=== PATIENT | male | born 1980 | race Caucasian/White ===

== ENCOUNTER 2017-12-02 00:35 | Emergency (ER) | payer OTHER ==
--- NOTE | 2017-12-02 01:59 | EDPHY ---
H & P Time Seen by Provider: 12/02/17 01:06 HPI/ROS: Chief complaint: Forehead laceration History of present illness: This is a 37-year-old male who presents, accompanied with his mother for evaluation of a forehead laceration. Patient was walking on some stairs when he slipped and struck his forehead against the side of the stairs cutting it. He has noted bleeding from the wound, this is been controlled with a dressing. He denies other trauma from the fall. Further there was no loss of consciousness. No headache. No pain or trauma to other parts of the body including the neck. No neurologic symptoms such as paresthesias, weakness or paralysis, bowel or bladder dysfunction. His tetanus is up-to-date. Review of systems: A 10 point review of systems was obtained and other than described above was negative Smoking Status: Current some day smoker Physical Exam: General Appearance: Alert, nontoxic Eyes: PERRLA. EOM intact. ENT: No hemotympanum, no allen sign, no raccoon eyes Respiratory: Lungs clear to auscultation bilaterally Cardiac: Regular rate and rhythm. Neurological: Alert and oriented x4. Cranial nerves 2-12 grossly intact. Strength and sensation intact and symmetrical. Skin: 3 cm horizontal laceration with straight edges that approximates well to the right forehead. No foreign body contamination appreciated. Musculoskeletal: The face and head are nontender. There is no crepitus or bony deformity including around the laceration. The spine is nontender to palpation along its entire length, no crepitus, bony deformity or step-off. Patient moving all extremities without difficulty. Ambulating well. Constitutional: Initial Vital Signs Temperature (C) 37.2 C 12/02/17 00:36 Heart Rate 97 12/02/17 00:36 Respiratory Rate 16 12/02/17 00:36 Blood Pressure 133/97 H 12/02/17 00:36 O2 Sat (%) 95 12/02/17 00:36 O2 Delivery Mode Room Air Allergies/Adverse Reactions: No Known Allergies Allergy (Unverified 12/02/17 00:41) Home Medications: Medication Instructions Recorded Omeprazole 12/02/17 Truvada 100 mg-150 mg Tablet 12/02/17 MDM/Departure - [facility] Procedures: Procedure: Laceration repair. Verbal consent was obtained from the patient. The 3 cm laceration on the forehead was anesthetized in the usual fashion. The wound was irrigated, draped and explored to its base with a gloved finger. It extended deep into the muscle layer. The wound was repaired with 5 0 Vicryl, 3 deep sutures, 5 0 Prolene, 1 subcuticular stitch, the wound was then reinforced with Steri-Strips anchored with tincture of benzoin. The wound repair was a moderately complex multilayer closure. The procedure was performed by myself. ED Course/Re-evaluation: Patient was seen in conjunction with my secondary supervising physician Dr. Lopez Hahn. Patient presents to the emergency department for lacerations to his right forehead. By history and physical exam I do not appreciate evidence of more significant trauma. I do not believe imaging studies are warranted at this time. The wound was cleaned, anesthetized, repaired and dressed. Patient is discharged home. Home care including wound care and head injury precautions were discussed. He is to follow up with a primary care doctor next week for recheck. Stitches to be removed in 7 days. Strict return precautions were discussed. The patient voiced understanding and agreement with plan. Differential Diagnosis: Included but not limited to simple laceration, deep structure injury, foreign body contamination - Depart Disposition: Home, Routine, Self-Care Clinical Impression: Forehead laceration Qualifiers: Encounter type: initial encounter Qualified Code(s): S01.81XA - Laceration without foreign body of other part of head, initial encounter Condition: Good Instructions: Facial Laceration (ED), Acute Wounds (ED) Additional Instructions: Follow-up with a primary care doctor for recheck Stitches to be removed in 7 days. You had a subcuticular stitch placed. If symptoms worsen or new symptoms develop return to the emergency department for recheck. Referrals: NONE *PRIMARY CARE P,. [Primary Care Provider] - As per Instructions [facility],. [Clinic] - As per Instructions
[2017-12-02 02:29] VITALS: BP 128/88
== END 2017-12-02 02:30 | disposition home or self-care (01) ==
PROC: 0HQ1XZZ Repair Face Skin, External Approach (ICD-10-PCS; principal; 2017-12-02)
DX: S01.81XA Laceration without foreign body of other part of head, initial encounter (principal); W10.9XXA Fall (on) (from) unspecified stairs and steps, initial encounter; F17.210 Nicotine dependence, cigarettes, uncomplicated